=== PATIENT | female | born 1985 | race Caucasian/White ===

== ENCOUNTER → 2016-08-14 | Outpatient (CLI) | payer OTHER ==
[~2016-08-14] MED LIST: IRON18TA PO; MULT-245 PO; SERT100T PO
--- NOTE | 2016-08-15 15:22 | PATHOLOGY ---
PATHOLOGY REPORT * * * * * * * * FINAL DIAGNOSIS: "Right toenail," toenail clippings: - Superficial portions of keratinous material. - Scant organisms suggestive of yeast/fungal organisms present on PAS fungal stain. (SKM:; d/t: 08/15/16) REPORT ELECTRONICALLY SIGNED BY: Randall Davalos M.D. DATE/TIME: 08/15/2016 15:20 * * * * * * * * GROSS PATHOLOGY: The specimen is received fresh, labeled "Pascale Olmstead, right toenail". Received are two segments of pale shukla male tissue measuring 0.5 x 0.1 x 0.1 and 0.8 x 0.2 x 0.1 cm in greatest dimensions. The specimen is filtered and entirely submitted in cassette A1, following exposure to a softening agent. A special stain for fungal organisms is ordered. (CAA; 08/14/2016) INITIAL CPT CODE(S): A; 11631, 59253 Professional services [place] [address] Technical services performed by [facility] at [address] [place] [address] [address] [address]. SPECIMEN(S) RECEIVED: A.Toenail CLINICAL HISTORY: None Provided PATIENT: PASCALE OLMSTEAD /AGE: 711/17/1985 (Age: 30) PATIENT #: [id number] ALT CASE #: SPECIMEN COLLECTION DATE: 08/14/2016 SPECIMEN RECEIVED DATE: 08/14/2016 [facility] - [address] [place] [address] - PHONE: [phone] * * * END OF REPORT * * *
== END | disposition home or self-care (01) ==
LOC: SPEC 09:59
PROVIDERS: ATTEND Podiatrist
DX: E11.9 Type 2 diabetes mellitus without complications (principal)
CPT/HCPCS: 88304; 88312

== ENCOUNTER 2016-08-28 08:00 | Outpatient (CLI) | payer OTHER ==
--- NOTE | 2016-08-28 10:34 | KCIC ---
PROCEDURE Pelvic and transvaginal ultrasound. HISTORY Right lower quadrant pain, previous hysterectomy COMPARISON None FINDINGS Multiple transabdominal sonographic images of the pelvis are submitted. There has been hysterectomy. Transvaginal ultrasound: Multiple transvaginal sonographic images of the pelvis are submitted. Left ovary measured 3.2 x 2.1 x 2.7 centimeters. There is a septated hypoechoic lesion of left ovary up to 2.7 x 1.8 by 2.5 centimeters. There is normal color flow and low resistance vascularity of the right left ovary. Right ovary measured 2.1 x 2 x 1.2 centimeters, normal low resistance vascularity. No significant free fluid is demonstrated. IMPRESSION There is a septated cyst of the left ovary up to 2.7 centimeters, no significant free fluid. There has been hysterectomy. Electronically signed by: iJm Saucedo MD (August 28, 2016 10:33:41)
== END 2016-08-28 10:00 | disposition home or self-care (01) ==
LOC: KCIC US 08:00
PROVIDERS: ATTEND Nurse Practitioner Family
DX: R10.31 Right lower quadrant pain (principal)
CPT/HCPCS: 76830; 76856

== ENCOUNTER 2017-01-19 18:46 | Emergency (ER) | payer OTHER ==
[~2017-01-19] VITALS: Ht 160 cm; Wt 56.2 kg
--- NOTE | 2017-01-19 18:52 | PHYS DOC ---
Adult General Chief Complaint Chief Complaint: ABDOMINAL PAIN HPI HPI Patient is a 31 year old female presenting to the emergency department for evaluation of right upper quadrant and epigastric pain that has been an ongoing issue for months to years however it has become worse over the past several days. She says she feels the pain primarily in the right upper quadrant but also feels pain and epigastric as well feels sharp and can radiate straight through to her back. She denies any nausea vomiting fevers chills dysuria hematuria vaginal bleeding vaginal discharge diarrhea or constipation. She says that her abdomen is much more distended than it usually is. She has had a hysterectomy but denies any other abdominal surgeries. She has tried naproxen and Tylenol which he thinks may have made the pain worse. She says approximate one hour after eating that makes the pain worse as well. Review of Systems Review of Systems Constitutional: Denies fever or chills [] GI: + abdominal pain. No nausea, vomiting, diarrhea [] : Denies dysuria or hematuria [] Musculoskeletal: + back pain. Current Medications Current Medications Current Medications Medications (Trade) Dose Ordered Sig/Elizabeth Start Time Stop Time Status Last Admin Dose Admin Fentanyl Citrate (Fentanyl 2ml Vial) 50 mcg 1X ONCE 01/19/17 20:45 01/19/17 20:46 DC 01/19/17 20:49 50 MCG Info (Do NOT chart on this entry -- for MONITORING) 1 each PRN DAILY PRN 01/19/17 20:30 01/21/17 20:29 Iohexol (Omnipaque 300 Mg/ml) 75 ml 1X ONCE 01/19/17 20:30 01/19/17 20:31 DC 01/19/17 20:31 75 ML Multi-Ingredient Mouthwash/Gargle (Gi Cocktail Single Dose) 15 ml 1X ONCE 01/19/17 19:15 01/19/17 19:16 DC 01/19/17 19:20 15 ML Ondansetron HCl (Zofran) 4 mg 1X ONCE 01/19/17 20:45 01/19/17 20:46 DC 01/19/17 20:49 4 MG Allergies Allergies Allergies Coded Allergies Type Severity Reaction Last Updated Verified No Known Drug Allergies 07/26/13 No Physical Exam Physical Exam Constitutional: Well developed, well nourished, no acute distress, non-toxic appearance. [] Abdomen: Bowel sounds slow, soft, mild distension, mild RUQ and epigastric tenderness, no rebound or guarding, no masses, no pulsatile masses. [] Skin: Warm, dry, no erythema, no rash. [] Current Patient Data Vital Signs Vital Signs Date Time Temp Pulse Resp B/P (MAP) Pulse Ox O2 Delivery O2 Flow Rate FiO2 01/19/17 20:49 20 98 Room Air 01/19/17 19:07 98.5 79 129/66 (87) 98.5 Lab Values Laboratory Tests Test 01/19/17 19:09 01/19/17 19:25 White Blood Count 6.2 x10^3/uL (4.0-11.0) Red Blood Count 4.32 x10^6/uL (3.50-5.40) Hemoglobin 13.5 g/dL (12.0-15.5) Hematocrit 39.6 % (36.0-47.0) Mean Corpuscular Volume 92 fL (79-100) Mean Corpuscular Hemoglobin 31 pg (25-35) Mean Corpuscular Hemoglobin Concent 34 g/dL (31-37) Red Cell Distribution Width 12.6 % (11.5-14.5) Platelet Count 159 x10^3/uL (140-400) Neutrophils (%) (Auto) 52 % (31-73) Lymphocytes (%) (Auto) 37 % (24-48) Monocytes (%) (Auto) 7 % (0-9) Eosinophils (%) (Auto) 3 % (0-3) Basophils (%) (Auto) 1 % (0-3) Neutrophils # (Auto) 3.2 x10^3uL (1.8-7.7) Lymphocytes # (Auto) 2.3 x10^3/uL (1.0-4.8) Monocytes # (Auto) 0.5 x10^3/uL (0.0-1.1) Eosinophils # (Auto) 0.2 x10^3/uL (0.0-0.7) Basophils # (Auto) 0.1 x10^3/uL (0.0-0.2) Sodium Level 142 mmol/L (136-145) Potassium Level 3.6 mmol/L (3.5-5.1) Chloride Level 105 mmol/L (98-107) Carbon Dioxide Level 30 mmol/L (21-32) Anion Gap 7 (6-14) Blood Urea Nitrogen 12 mg/dL (7-20) Creatinine 0.7 mg/dL (0.6-1.0) Estimated GFR (Cockcroft-Gault) 97.6 BUN/Creatinine Ratio 17 (6-20) Glucose Level 115 mg/dL (70-99) H Calcium Level 9.4 mg/dL (8.5-10.1) Total Bilirubin 0.4 mg/dL (0.2-1.0) Aspartate Amino Transferase (AST) 30 U/L (15-37) Alanine Aminotransferase (ALT) 45 U/L (14-59) Alkaline Phosphatase 50 U/L (46-116) Total Protein 6.6 g/dL (6.4-8.2) Albumin 4.2 g/dL (3.4-5.0) Albumin/Globulin Ratio 1.8 (1.0-1.7) H Lipase 141 U/L (73-393) Urine Collection Type Unknown Urine Color Yellow Urine Clarity Cloudy Urine pH 7.0 Urine Specific Tyler 1.015 Urine Protein Negative mg/dL (NEG-TRACE) Urine Glucose (UA) Negative mg/dL (NEG) Urine Ketones (Stick) Negative mg/dL (NEG) Urine Blood Negative (NEG) Urine Nitrite Negative (NEG) Urine Bilirubin Negative (NEG) Urine Urobilinogen Dipstick 0.2 mg/dL (0.2 mg/dL) Urine Leukocyte Esterase Negative (NEG) Urine RBC 0 /HPF (0-2) Urine WBC Occ /HPF (0-4) Urine Squamous Epithelial Cells Mod /LPF Urine Amorphous Sediment Present /HPF Urine Bacteria Few /HPF (0-FEW) Urine Mucus Mod /LPF Laboratory Tests 01/19/17 19:09 Laboratory Tests 01/19/17 19:09 EKG EKG [] Radiology/Procedures Radiology/Procedures EXAM: ABDOMEN LTD HISTORY: RUQ PAIN, PT ATE LAST @5:30PM COMPARISON: None. TECHNIQUE: Transverse and longitudinal sonography of the right upper quadrant is performed. FINDINGS: The visualized proximal pancreas demonstrates no focal abnormality. Mid and distal pancreas is obscured. IVC is documented. Liver demonstrates normal contour and echogenicity without a focal intrahepatic lesion is seen. Main portal vein demonstrates normal directional flow. Liver measures 14.4 cm. Common bile duct measures 5 mm in diameter. No intraluminal gallstones, wall thickening or pericholecystic fluid is seen. Right kidney measures 10.5 x 3.8 x 3.8 cm, without evidence of hydronephrosis. No free fluid is seen within the provided images. IMPRESSION: Normal right upper quadrant ultrasound. Electronically signed by: Faizan Galindo MD (01/19/2017 8:04 PM) [facility] DICTATED and SIGNED BY: FAIZAN GALINDO MD DATE: 01/19/172001 REASON: RUQ, EPIGASTRIC PAIN PROCEDURE: CT ABD PELV W/ IV CONTRST ONLY EXAM: Abdomen and pelvis CT with intravenous contrast. HISTORY: Right upper quadrant and epigastric pain. History of hysterectomy. TECHNIQUE: Computed tomographic images of the abdomen and pelvis were obtained following the administration of 75 cc of Omni 300 intravenous contrast. Multiplanar reformatting was performed. PQRS compliance statement: One or more of the following individualized dose reduction techniques were utilized for this examination: 1. Automated exposure control 2. Adjustment of the mA and/or kV according to patient size 3. Use of iterative reconstruction technique COMPARISON: None. FINDINGS: The lung bases demonstrate no acute finding. Breast implants are partially visualized. The liver, spleen, gallbladder, pancreas, adrenal glands and left kidney demonstrate no focal abnormality. A nonobstructing 2 to 3 mm calculus is seen within the inferior right kidney. The GI tract demonstrates no dilated bowel loops to suggest obstruction. The appendix is not well visualized, however no inflammatory changes are seen within the right lower quadrant. The urinary bladder is grossly unremarkable. Uterus is not well visualized, may be surgically absent. A simple appearing 2.5 cm cyst is seen within the left adnexa likely ovarian in origin, not uncommon in postmenopausal women. No intra-abdominal or pelvic free fluid, free air or significant lymphadenopathy is seen. Aorta is normal in caliber. Overlying soft tissues and visualized osseous structures demonstrate no acute or suspicious finding. IMPRESSION: A nonobstructing, 2 to 3 mm calculus is seen in the inferior right kidney. Otherwise, no acute intra-abdominal or pelvic process seen. Electronically signed by: Faizan Galindo MD (01/19/2017 8:56 PM) [facility] Course & Med Decision Making Course & Med Decision Making Patient with right upper quadrant and epigastric pain which could be attributed to gallbladder pathology or possibly gastric or duodenal inflammation or ulcer. We'll try giving GI cocktail checking basic labs and a right upper quadrant ultrasound to start with. Patient's labs unremarkable and her ultrasound is normal as well. Patient likely has more of a GI etiology. Will get CT scan to rule out acute surgical process. If negative patient will likely need to be started on antacid and follow up with GI as an outpatient. Will transfer care to Dr. Miller and have her follow up on the patient. CT scan of the abdomen and pelvis read by the radiologist with no acute findings to explain the patient's pain. Dr. Day and I reviewed the CT scan and believes she does have a lot of stool and gas in the GI tract. At this time, we will try treating with MiraLAX and a proton pump inhibitor and encouraged GI follow-up. See instructions for plan. Dragon Disclaimer Dragon Disclaimer This electronic medical record was generated, in whole or in part, using a voice recognition dictation system. Departure Departure Impression: Primary Impression: Abdominal pain Disposition: HOME, SELF-CARE Condition: STABLE Referrals: GIULIANO DELVALLE (PCP) Patient Instructions: Abdominal Pain, [id number] Additional Instructions: I recommend that you take MiraLAX one dose every 6-8 hours until you have had good "results", and see if this has any effect on your pain. [place], we will start a proton pump inhibitor. I do recommend that you follow up with GI. Scripts Pantoprazole Sodium (PROTONIX) 40 Mg Tablet. 1 TAB PO DAILY for Abd pain, reduce acid, #30 TAB 0 Refills Prov: ANALILIA MILLER MD 01/19/17 Problem Qualifiers Primary Impression: Abdominal pain Abdominal location: upper abdomen, unspecified Qualified Codes: R10.10 - Upper abdominal pain, unspecified STUART DAY DO Jan 19, 2017 18:52 ANALILIA MILLER MD Jan 19, 2017 21:23
[2017-01-19] MEDS ORDERED: LIDO:MAALOX:DONNATAL 1:1:1 15 ML SINGLE DOSE SWSW ONE (19:15)
[2017-01-19 19:18] LABS: BASO # 0.1 x10^3/uL (0.0-0.2); BASO % 1 % (0-3); EOS % 3 % (0-3); HEMATOCRIT 39.6 % (36.0-47.0); HEMOGLOBIN 13.5 g/dL (12.0-15.5); LYMPH # 2.3 x10^3/uL (1.0-4.8); LYMPH % 37 % (24-48); MEAN CORPUSCULAR HEMOGLOBIN 31 pg (25-35); MEAN CORPUSCULAR HGB CONC 34 g/dL (31-37); MEAN CORPUSCULAR VOLUME 92 fL (79-100); MONO % 7 % (0-9); NEUT % 52 % (31-73); PLATELET COUNT 159 x10^3/uL (140-400); RED BLOOD COUNT 4.32 x10^6/uL (3.50-5.40); RED CELL DISTRIBUTION WIDTH 12.6 % (11.5-14.5); WHITE BLOOD COUNT 6.2 x10^3/uL (4.0-11.0)
[2017-01-19 19:31] LABS: BILIRUBIN,URINE NEGATIVE (NEG); GLUCOSE,URINE NEGATIVE (NEG); NITRITE,URINE NEGATIVE (NEG); PROTEIN,URINE NEGATIVE (NEG-TRACE); UROBILINOGEN,URINE 0.2 mg/dL (0.2 mg/dL)
[2017-01-19 19:35] LABS: RBC,URINE 0 /HPF (0-2); WBC,URINE OCC /HPF (0-4)
[2017-01-19 19:36] LABS: BACTERIA,URINE FEW /HPF (0-FEW); SQUAMOUS EPITHELIAL CELL,UR MOD /LPF
[2017-01-19 19:36] LABS: CALCIUM 9.4 mg/dL (8.5-10.1); CREATININE 0.7 mg/dL (0.6-1.0); GFR 97.6; POTASSIUM 3.6 mmol/L (3.5-5.1)
[2017-01-19 19:42] LABS: ALBUMIN 4.2 g/dL (3.4-5.0); ALBUMIN/GLOBULIN RATIO 1.8 (1.0-1.7); TOTAL BILIRUBIN 0.4 mg/dL (0.2-1.0); TOTAL PROTEIN 6.6 g/dL (6.4-8.2)
--- NOTE | 2017-01-19 20:07 | RAD ---
EXAM: ABDOMEN LTD HISTORY: RUQ PAIN, PT ATE LAST @5:30PM COMPARISON: None. TECHNIQUE: Transverse and longitudinal sonography of the right upper quadrant is performed. FINDINGS: The visualized proximal pancreas demonstrates no focal abnormality. Mid and distal pancreas is obscured. IVC is documented. Liver demonstrates normal contour and echogenicity without a focal intrahepatic lesion is seen. Main portal vein demonstrates normal directional flow. Liver measures 14.4 cm. Common bile duct measures 5 mm in diameter. No intraluminal gallstones, wall thickening or pericholecystic fluid is seen. Right kidney measures 10.5 x 3.8 x 3.8 cm, without evidence of hydronephrosis. No free fluid is seen within the provided images. IMPRESSION: Normal right upper quadrant ultrasound. Electronically signed by: Priti Galindo MD (01/19/2017 8:04 PM) [facility]
[2017-01-19] MEDS ORDERED: CONTRAST GIVEN MC PRN (20:30)
[2017-01-19] MEDS ORDERED: IOHEXOL 300 MG/ML 75 ML VIAL IV ONE (20:30)
[2017-01-19] MEDS ORDERED: ONDANSETRON PF 4 MG/2 ML VIAL. IV ONE (20:45)
[2017-01-19] MEDS ORDERED: fentaNYL PF VIAL 100 MCG/2 ML VIAL IV ONE (20:45)
--- NOTE | 2017-01-19 20:59 | RAD ---
EXAM: Abdomen and pelvis CT with intravenous contrast. HISTORY: Right upper quadrant and epigastric pain. History of hysterectomy. TECHNIQUE: Computed tomographic images of the abdomen and pelvis were obtained following the administration of 75 cc of Omni 300 intravenous contrast. Multiplanar reformatting was performed. PQRS compliance statement: One or more of the following individualized dose reduction techniques were utilized for this examination: 1. Automated exposure control 2. Adjustment of the mA and/or kV according to patient size 3. Use of iterative reconstruction technique COMPARISON: None. FINDINGS: The lung bases demonstrate no acute finding. Breast implants are partially visualized. The liver, spleen, gallbladder, pancreas, adrenal glands and left kidney demonstrate no focal abnormality. A nonobstructing 2 to 3 mm calculus is seen within the inferior right kidney. The GI tract demonstrates no dilated bowel loops to suggest obstruction. The appendix is not well visualized, however no inflammatory changes are seen within the right lower quadrant. The urinary bladder is grossly unremarkable. Uterus is not well visualized, may be surgically absent. A simple appearing 2.5 cm cyst is seen within the left adnexa likely ovarian in origin, not uncommon in postmenopausal women. No intra-abdominal or pelvic free fluid, free air or significant lymphadenopathy is seen. Aorta is normal in caliber. Overlying soft tissues and visualized osseous structures demonstrate no acute or suspicious finding. IMPRESSION: A nonobstructing, 2 to 3 mm calculus is seen in the inferior right kidney. Otherwise, no acute intra-abdominal or pelvic process seen. Electronically signed by: Priti Galindo MD (01/19/2017 8:56 PM) [facility]
[2017-01-19] MEDS ORDERED: PANT40TA3 PO (21:22)
[2017-01-19 21:27] VITALS: BP 111/53
== END 2017-01-19 21:28 | disposition home or self-care (01) ==
LOC: ER 18:46
DX: R10.13 Epigastric pain (principal); R10.11 Right upper quadrant pain
CPT/HCPCS: 36415; 74177; 76705; 80053; 81001; 83690; 85025; 96374; 96375; 99285; J2405; J3010; Q9967

== ENCOUNTER 2017-04-17 17:09 | Emergency (ER) | payer OTHER | END 2017-04-17 18:08 | disposition home or self-care (01) | LOC: ER 17:09 | DX: H69.92 Unspecified Eustachian tube disorder, left ear (principal); Z90.710 Acquired absence of both cervix and uterus | CPT/HCPCS: 99281 ==